=== PATIENT | male | born 1975 | race Hispanic/Latino ===

== ENCOUNTER 2017-12-22 08:54 | Emergency (ER) | payer BC, OTHER ==
[~2017-12-22] VITALS: Ht 167.6 cm; Wt 108.9 kg
== END 2017-12-22 10:32 | disposition home or self-care (01) ==
LOC: ER 08:54
DX: M54.41 Lumbago with sciatica, right side (principal); S39.012A Strain of muscle, fascia and tendon of lower back, initial encounter
CPT/HCPCS: 99281